=== PATIENT | male | born 1960 | race Caucasian/White ===

== ENCOUNTER 2016-08-07 13:16 | Day surgery (SDC) | payer OTHER ==
[2016-08-07] VITALS (13 sets, daily range): BP systolic 125–169; BP diastolic 66–105; PULSE 16–85; RESP 10–20; O2SAT 94–98
[~2016-08-07] VITALS: Ht 185.4 cm; Wt 115.0 kg
[2016-08-07] MEDS: Lactated Ringer's 1,000 ML IV SCH ×5 (05:00→20:51)
[~2016-08-07 13:16] MED LIST: Bacitracin 50,000 unit Inj IRRIGATION ONE; CHOL40003 PO; CITA20TA11 PO; CeFAZolin 2 Gm/50 mL D5W Premix IV ONE; DIAZ5TAB PO; DOCU240C41 PO; ESOM40CA41 PO; IBUP800T28 PO; MELO-259 PO; METO25TA99 PO; OXYC1TAB24 PO; POLY17PO6 PO; Thrombin Powder 5,000 Unit TOPICAL ONE
[2016-08-07] MEDS ORDERED: Ketamine 10 mg/mL 20 mL Inj ONE (13:17)
[2016-08-07] MEDS ORDERED: Glycopyrrolate 0.2 MG/ML 1mL Inj ONE (13:17)
[2016-08-07] MEDS ORDERED: Rocuronium 10 mg/mL 5 mL Inj ONE (13:17)
[2016-08-07] MEDS ORDERED: HYDROmorphone 2 mg/mL Inj ONE (13:17)
[2016-08-07] MEDS ORDERED: Propofol 10,000 mCg/mL 20 mL Inj ONE (13:17)
[2016-08-07] MEDS ORDERED: fentaNYL-PF 50 mCg/mL 2 mL Inj ONE ×3 (13:17→20:11)
[2016-08-07] MEDS ORDERED: Ondansetron 2 mg/mL 2 mL Inj ONE (13:17)
[2016-08-07] MEDS ORDERED: Dexamethasone 4 mg/mL Inj ONE (13:17)
[2016-08-07] MEDS ORDERED: Neostigmine 1 mg/mL 10 mL Inj ONE (13:17)
--- NOTE | 2016-08-07 15:57 | PCM.HPANE ---
Patient Data Date of Service: Aug 07, 2016 Surgeon Admitting Provider: Attending Provider:Rolan Alegria MD Primary Care Physician:Dawn Other Provider:Jany Perez Anesthesia Reason for Visit Cervical Radiculopathy Ht/WT & BMI Height (Feet): 6 Height (Inches): 1 Weight (Kilograms): 115.6 Body Mass Index 33.00 Allergies Coded Allergies: No Known Drug Allergies (Verified Allergy, Unknown, 11/19/13) Past Anesthesia History Anesthesia History: Denies:: Abnormal Airway, Anesthesia Reactions, Difficult Intubation, Fam Anesthesia Reaction, Fam Malignant Hypertherm, Malignant Hyperthermia Diabetes History Hx Diabetes?: No MRSA MRSA: No Medications Hypertension Medication: Yes Home Meds Incl Beta Maryjo: Yes Date Beta Maryjo Taken: Aug 07, 2016 Time Beta Maryjo Taken: 0900 Reported Medications Cholecalciferol (Vitamin D3) (Vitamin D3)4,000 Unit Capsule4,000 Unit PO DAILY 08/06/16 Diazepam (Valium)5 Mg Tablet5 Mg PO TID A 30 Days Ref 0 08/06/16 Docusate Calcium (Stool Softener)240 Mg Azwxhto186 Mg PO PRN For Constipation 08/06/16 oxyCODONE-Acetaminophen 5-325 mg 1 Each Tablet1-2 Tab PO q4-6h PRN For Pain Ref 0 08/06/16 Esomeprazole Magnesium (Nexium)40 Mg Capsule.dr40 Mg PO DAILY Ref 0 08/06/16 Polyethylene Glycol 3350 (Miralax)17 Gm Powd.pack17 Gm PO DAILY 08/06/16 Metoprolol Succinate ER 25 Mg Tab.er.24h25 Mg PO BID Ref 0 08/06/16 Ibuprofen 800 Mg Skyvll646 Mg PO TID PRN For Pain Ref 0 08/06/16 Citalopram 20 Mg Jwaduo64 Mg PO DAILY Ref 0 08/06/16 Meloxicam 7.5 Mg Tablet7.5 Mg PO BID 30 Days Ref 0 08/03/16 History HEENT History: Denies:: Abnormal Airway Difficult Intubation Hearing Problem Hx of Heart Problems?: Yes Cardiovascular History: Positive for:: Hypertension Denies:: AICD Pacemaker Hx of Respiratory Problem?: Yes Respiratory History: Positive for:: Use of C-PAP Machine Denies:: Asthma COPD Cough Emphysema Hemoptysis Oxygen Administration Pneumonia Pulmonary Embolism Tuberculosis Hx Neurologic Problems?: No Neurological History: Denies:: CVA Multiple Sclerosis Parkinson's Disease Seizures Hx of GI Problems?: No Gastrointestinal History: Denies:: Cirrhosis Gall Bladder Disease Gastrointestinal Bleeding Hx of Problems?: No Male Hx: Denies:: Prostate Problems Hx Musculoskeletal Problems?: Yes Musculoskeletal History: Positive for:: Back Injury (cervical radiculopathy current admission problem) Musculoskeletal Trauma Psycho Social History: Positive for:: Anxiety Hx Depression Hx Surgeries?: Yes (skin ca, tonsil) Hx Any Other Health Problems?: Yes Other History: Positive for:: Cancer (skin only) Hx Diabetes: No Hx Alcohol Use: Yes (BEER THREE A WEEK)Alcoholic Drinks Per Day: beer three time weekHx Substance Use: No Smoking Status: Former Smoker Stop/Bang Treated for Sleep Apnea?: Yes Do You Have a CPAP Machine?: Yes S-Snoring: Do You Snore Loudly: No T-Tired: feel tired, fatigued: No O-Obsered: Observed not breath: Yes P-Blood Pressure: treated: No B- Body Mass Index > 35 kg/m2: Yes A- Age over 50: No N- Neck Large Circumference: No G- Gender Male: No DAFNE Total Score: 2 DAFNE Risk Assessment: Low Risk, <3 Yes Risk Assessment Category Category 1A: Patient has history of documented sleep apnea, and HAS NOT received any narcotic, sedative or anesthesia administration during this stay. Category 1B: Patient has history of documented sleep apnea, and HAS received any narcotic , sedative or anesthesia administration during this stay Category 2: Patient has SUSPECTED Obstructive Sleep Apnea, and HAS received any narcotic , sedative or anesthesia administration during this stay. Category 3: Patient has SUSPECTED Obstructive Sleep Apnea and HAS NOT received narcotic, sedative or anesthesia administration during this stay. Category 4: Outpatient in Procedural Areas with known sleep apnea or who screen positive for High Risk via the STOP/BANG questionnaire. Exam Exam Vital Signs Vital Signs Date Time Temp Pulse Resp B/P Pulse Ox O2 Delivery O2 Flow Rate FiO2 08/07/16 13:58 16 16 137/88 97 Room Air General Appearance: Alert, Oriented X3, Cooperative, No Acute Distress HEENT/AIRWAY: MP 2 (Lower bridge, full aldridge), Neck Movement (Midline extention intact; sensitive to R Rotation without associated radiculopathy) Lungs: Clear to Auscultation, Normal Air Movement Heart: Exam Unremarkable, Regular Rate/Rhythm, No Murmurs/Rubs/Gallops Meds/Labs/Diagnostics Admission Meds Current Medications Lactated Ringer's (Lr) 1,000 ml @ 120 mls/hr Q8H20M IV Last administered on t 13:42; Start 08/07/16 at 05:00; Stop 08/07/16 at 13:19; Status DC Plan Impression Patient chart reviewed, patient interviewed and anesthestic plan with risks, benefits, and alternatives discussed, and informed consent obtained. NPO Status: 1100 CLEAR ASA Physical Status: ASA2 Mod Systemic Disease Anesthetic Plan: GA Bene/Risks/Altern/Consents: Yes HP Complete Prior to Induction: Yes Nate Connor DO Aug 07, 2016 15:57
[2016-08-07] MEDS ORDERED: Bacitracin 50,000 unit Inj ONE (17:34)
[2016-08-07] MEDS ORDERED: Thrombin Powder 5,000 Unit TOPICAL ONE ×2 (17:35→18:16)
[2016-08-07] MEDS ORDERED: Bupivacaine 0.5%/EPI 50 mL Inj INFILTRATE ONE (18:15)
[2016-08-07] MEDS ORDERED: Bacitracin 50,000 unit Inj IRRIGATION ONE (18:15)
--- NOTE | 2016-08-07 19:46 | PCM.HPSURG ---
Subjective Date of Service: Jul 26, 2016 Referring Provider: Admitting Physician: Primary Care Physician: Nopcp Attending Physician: Rolan Alegria MD Allergy Allergies: Coded Allergies: No Known Drug Allergies (Verified Allergy, Unknown, 11/19/13) Social History Hx Alcohol Use: Yes (BEER THREE A WEEK) Alcoholic Drinks Per Day: beer three time week Hx Substance Use: No PMH HEENT History HEENT History: Denies:: Abnormal Airway Difficult Intubation Hearing Problem Cardiovascular History History of Heart Problems?: Yes Cardiovascular History: Positive for:: Hypertension Denies:: AICD Pacemaker Respiratory History of Respiratory Problem: Yes Respiratory History: Positive for:: Use of C-PAP Machine Denies:: Asthma COPD Cough Emphysema Hemoptysis Oxygen Administration Pneumonia Pulmonary Embolism Tuberculosis Neurological History Hx Neurologic Problems?: No Neurological History: Denies:: CVA Multiple Sclerosis Parkinson's Disease Seizures Gastrointestinal History HX of GI Problems?: No Gastrointestinal History: Denies:: Cirrhosis Gall Bladder Disease Gastrointestinal Bleeding Genitourinary History Hx of Gu Problems?: No Female/Male History Reproductive History Male: Denies: Prostate Problems Musculoskeletal History Hx Musculoskeletal Problems?: Yes Musculoskeletal History: Positive for:: Back Injury (cervical radiculopathy current admission problem) Musculoskeletal Trauma Psycho Social History Psycho Social History: Positive for:: Anxiety Hx Depression Other History Hx Any Other Health Problems?: Yes Other History: Positive for:: Cancer (skin only) Diabetes: No Social History Hx Alcohol Use: Yes (BEER THREE A WEEK)Alcoholic Drinks Per Day: beer three time weekHx Substance Use: No Smoking Status: Former Smoker H&P Surgical Exam Exam Lungs: Clear to Auscultation, Normal Air Movement Heart: Exam Unremarkable, Regular Rate/Rhythm, No Murmurs/Rubs/Gallops Yasir Gil PA-C Aug 07, 2016 19:46
[2016-08-07] MEDS ORDERED: Benzocaine (Hurricaine) 20% Unit-Dose Spray MUC_MEMBRM PRN ×2 (19:50→20:05)
--- NOTE | 2016-08-07 19:50 | PCM.HPSURG ---
Subjective Date of Service: Jul 26, 2016 Referring Provider: Admitting Physician: Primary Care Physician: Nopcp Attending Physician: Rolan Alegria MD Chief Complaint Left arm pain History of Present Illness Brief H&P performed by Dr. Rolan Alegria M.D. on 07/26/2016 Visit 56-year-old male who presents for evaluation of left arm pain. The patient reports spontaneous onset of pain proximally 6 weeks ago. There is no inciting trauma. He complains of severe intractable pain in the left periscapular region with radiation to the left arm & hand. The arm & hand symptoms include tingling, paresthesias, buzzing, & numbness. He also some notes weakness in the left arm. He has been unable to sleep at night because of pain despite oral narcotics, NSAIDs, diazepam, gabapentin, & oral prednisone. He did report partial temporary improvement while he was on prednisone for 5 days, but as soon as the medication was finished the pain returned to being severe. 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 He denies right arm symptoms or any chronic neck complaints. He does have some moderate low back pain & restless leg syndrome. He denies gait changes or bowel or bladder changes. PHYSICAL EXAM General: This is a well-developed, well-nourished, male who is alert, cooperative, & appears to be in no acute distress with language and speech that is intact & fluent. There is no evidence of recent or remote memory impairment. HEENT: Head is normocephalic, atraumatic. Neck: Non-tender, decreased range of motion. Khloe's, Lhermittes & Distraction is positive, & No adenopathy. Lungs: Clear to auscultation bilaterally. Heart: Regular rate & rhythm. No audible murmur. Abdomen: Soft, & non-tender. Back: No gross scoliosis, & non-tender. Extremities: No peripheral edema. Radial, dorsalis pedis pulses 2+ bilaterally. Fabers is [NEGATIVE] for hip pathology. Straight leg raise is [NEGATIVE]. Tinel 's & Phalen's are [NEGATIVE] with no tenderness over cubital tunnel. Neurologic: Alert and oriented x 3. Language and speech are intact & fluent. No evidence of recent or remote memory impairment. Fund of knowledge is appropriate for age and level of education. Mood is euthymic. Cranial nerves: Pupils are equal and reactive to light and accommodation. Extra- ocular movements are intact. Visual girffin are intact with direct confrontation bilaterally. Sensation is intact on the face bilaterally. No facial asymmetry. Hearing appear to be intact bilaterally. Palate rises symmetrically. Shoulder shrug is symmetrical. Tongue is midline. Motor strength: [5/5] bilateral deltoid, biceps, triceps, wrist extension, handgrip; hip flexion, knee extension, foot dorsiflexion, plantar flexion, & extensor hallucis longus. Except left triceps strength is 4/5 Deep Tendon Reflexes: [2+] biceps, [2+] brachioradialis, [2+] triceps, [3+] knee jerks, [2+] ankle jerks. Toes are down-going to plantar stimulation. Castaneda's sign is [NEGATIVE]. Muscle Bulk and Tone: Intact in the upper & lower extremities. Sensation: Diminished pinprick and light touch in the left thumb, index, & middle finger following the C6 nerve root distribution. Coordination: Intact ejbkqb-kg-bcch & hgbj-gn-gkmw, rapid alternating movements in the upper & lower extremities. Gait: Intact, tandem gait can be performed. Romberg is negative. DIAGNOSTIC STUDIES: MRI scan of the cervical spine shows large left paracentral disc herniation at C6-7 causing severe compression of the left C7 nerve root & compression of the left side of the spinal cord. There is moderate broad-based disc osteophyte at C5-6 causing spinal canal stenosis but no significant nerve root or spinal cord compression. CLINICAL IMPRESSION: Severe left upper extremity pain, weakness, & numbness. Imaging findings also shows spinal cord compression in addition to severe nerve root compression due to C6-7 herniated disc. RECOMMENDATIONS: The patient is a appropriate candidate for surgical treatment. He has already tried oral steroids, which provided only short-term partial relief. Physical therapy is not effective when there is spinal cord compression & severe radiculopathy. I recommend C6-7 anterior cervical discectomy & disc arthroplasty. I reviewed the procedure and films with the patient & his . We went over the risks and benefits. Risks including but not limited to residual symptoms despite a technically successful operation, failure of device requiring revision or fusion surgery, hoarseness, dysphagia, bleeding, infection, very rare nerve or spinal cord injury, & medical complications. He understands he would like to proceed. Surgery will be scheduled for the next available date. The above H&P was performed by Dr. Rolan Alegria M.D. on 07/26/2016 and dictated into [facility] EMR on 08/07/2016 by Yasir Gil PA-C Allergy Allergies: Coded Allergies: No Known Drug Allergies (Verified Allergy, Unknown, 11/19/13) Social History Hx Alcohol Use: Yes (BEER THREE A WEEK) Alcoholic Drinks Per Day: beer three time week Hx Substance Use: No PMH HEENT History HEENT History: Denies:: Abnormal Airway Difficult Intubation Hearing Problem Cardiovascular History History of Heart Problems?: Yes Cardiovascular History: Positive for:: Hypertension Denies:: AICD Pacemaker Respiratory History of Respiratory Problem: Yes Respiratory History: Positive for:: Use of C-PAP Machine Denies:: Asthma COPD Cough Emphysema Hemoptysis Oxygen Administration Pneumonia Pulmonary Embolism Tuberculosis Neurological History Hx Neurologic Problems?: No Neurological History: Denies:: CVA Multiple Sclerosis Parkinson's Disease Seizures Gastrointestinal History HX of GI Problems?: No Gastrointestinal History: Denies:: Cirrhosis Gall Bladder Disease Gastrointestinal Bleeding Genitourinary History Hx of Gu Problems?: No Female/Male History Reproductive History Male: Denies: Prostate Problems Musculoskeletal History Hx Musculoskeletal Problems?: Yes Musculoskeletal History: Positive for:: Back Injury (cervical radiculopathy current admission problem) Musculoskeletal Trauma Psycho Social History Psycho Social History: Positive for:: Anxiety Hx Depression Other History Hx Any Other Health Problems?: Yes Other History: Positive for:: Cancer (skin only) Diabetes: No Social History Hx Alcohol Use: Yes (BEER THREE A WEEK)Alcoholic Drinks Per Day: beer three time weekHx Substance Use: No Smoking Status: Former Smoker H&P Surgical Exam Exam Lungs: Clear to Auscultation, Normal Air Movement Heart: Exam Unremarkable, Regular Rate/Rhythm, No Murmurs/Rubs/Gallops Yasir Gil PA-C Aug 07, 2016 19:50
[2016-08-07] MEDS ORDERED: Polyethylene Glycol (PEG) 17 Gm Powder PO PRN (19:55)
[2016-08-07] MEDS ORDERED: Ondansetron 2 mg/mL 2 mL Inj IVPUSH PRN ×2 (19:55→20:10)
[2016-08-07] MEDS ORDERED: Senna-Docusate 8.6-50 mg Tablet PO PRN (19:55)
[2016-08-07] MEDS ORDERED: Sodium Biphos-Phos 133 mL Enema RECTAL PRN (19:55)
[2016-08-07] MEDS ORDERED: Benzocaine-Menthol Lozenge 2/Pkg PO PRN (19:55)
[2016-08-07] MEDS ORDERED: Magnesium Hydroxide 10 mL Oral Concentration PO PRN (19:55)
[2016-08-07] MEDS ORDERED: HYDROmorphone 1 mg/mL Inj IVPUSH PRN (19:55)
--- NOTE | 2016-08-07 20:01 | PCM.ANEP1 ---
Post Anesthesia Phase 1 PACU Phase 1 Assessment Date of Service: Jul 26, 2016 Vital Signs Vital Signs Date Time Temp Pulse Resp B/P Pulse Ox O2 Delivery O2 Flow Rate FiO2 08/07/16 19:55 75 12 144/89 98 Simple Mask 8 08/07/16 19:46 77 15 157/78 98 Simple Mask 8 08/07/16 19:43 80 14 156/74 98 Simple Mask 8 08/07/16 19:33 37.0 82 12 169/105 98 Simple Mask 8 08/07/16 13:58 16 16 137/88 97 Room Air Anesthetic Administered: GA Level of Alertness: Sleepy, easy to arouse RASHID's with Equal Strength: Yes Pain: No Nausea or Vomiting: No Oxygen Delivery: Simple Mask (6L simple mask) Lungs: Clear to Auscultation, Normal Air Movement Nate Connor DO Aug 07, 2016 20:01
[2016-08-07] MEDS ORDERED: Labetalol 5 mg/mL 4 mL Inj IV PRN (20:10)
[2016-08-07] MEDS ORDERED: Phenylephrine 10,000 mCg/mL Inj IVPUSH PRN (20:10)
[2016-08-07] MEDS ORDERED: Atropine 0.4 mg/mL Inj IVPUSH PRN (20:10)
[2016-08-07] MEDS ORDERED: Lactated Ringer's 1,000 ML IV SCH (20:10)
[2016-08-07] MEDS ORDERED: Lactated Ringer's 500 ML IV PRN (20:10)
[2016-08-07] MEDS ORDERED: Dexamethasone 4 mg/mL Inj IVPUSH PRN (20:10)
[2016-08-07] MEDS ORDERED: EPHEDrine Sulfate 50 mg/mL Inj IVPUSH PRN (20:10)
--- NOTE | 2016-08-07 20:21 | PCM.ANEP2 ---
Post Anesthesia Evaluation ASA/CMS Post Anesthesia Date of Service: Aug 07, 2016 VS in Patient's Normal Range?: Yes Resp Stable; Airway Patent?: Yes CV Function & Hydration Stable: Yes Mental Status Recovered?: Yes Pain control Satisfactory?: Yes N/V Control Satisfactory?: Yes Additional Comments Sensorimotor baseline. Nate Connor DO Aug 07, 2016 20:21
[2016-08-07] MEDS: fentaNYL-PF 50 mCg/mL 2 mL Inj IVPUSH PRN ×2 (20:25→20:33)
[2016-08-07] MEDS: HYDROmorphone 1 mg/mL Inj IVPUSH PRN ×2 (20:25→20:33)
--- NOTE | 2016-08-07 20:49 | OP ---
[address] [address] OPERATIVE REPORT PATIENT: KING AMEZCUA : 1960 MR#: [id number] ADMIT: 08/07/2016 JOB ID: [id number] DATE OF SURGERY: 08/07/2016 SURGEON: Rolan Alegria MD PREOPERATIVE DIAGNOSIS(ES): Herniated disk, C6-7, with left C7 radiculopathy. POSTOPERATIVE DIAGNOSIS(ES): Herniated disk, C6-7, with left C7 radiculopathy. PROCEDURE: C6-7 anterior cervical diskectomy and disk arthroplasty with LDR Mobi-C artificial disk. REDUCER: KELSI Light. Sales Planner provided irrigation and retraction and was medically necessary for the procedure. OPERATIVE PROCEDURE: The patient was brought to the operating room. General anesthesia with oral intubation was administered. Patient was positioned supine with the neck roll, shoulders taped down and the anterior neck was prepped and draped in a sterile fashion. Time-out was performed. All extremities padded. IV Ancef was given. Compression boots were applied to the legs and active warming was in place. The skin was injected with Marcaine-containing epinephrine. A horizontal incision was made from the midline towards the right side of the neck 4 cm in length, 2 cm above the clavicle. Platysma muscles dissected free from the overlying tissue. The platysma was incised horizontally. A large vein in the midline was partially transected and was controlled with hemostats and then tied off with 3-0 Vicryl suture. A plane was developed between the sternocleidomastoid laterally and the strap muscles medially until the anterior aspect of the cervical spine was encountered. Long coli muscles were dissected from the spine at C6-C7 and a deep self-retaining retractor was placed. Imaging was taken to confirm the level of the procedure and perfect AP and lateral positioning of the patient. The disk was incised with a scalpel. Distracting pins were placed in the C6 and C7 vertebral bodies. The disk space was distracted open. A diskectomy was carried out with curettes and pituitary rongeurs. Posterior osteophytes were removed to enlarge the access to the epidural space. The posterior longitudinal ligament was resected. Multiple large fragments of herniated disk were encountered against the thecal sac and in the left C7 nerve root foramen. These were extracted with micro nerve hook and micropituitary forceps. When no additional fragments remained, the thecal sac and exiting C7 nerve roots were fully visualized. The endplates were scraped clean with a curette. The space was measured with sizers and the Mobi-C device was selected. A 17 mm wide, 60 mm depth, 6 mm height arthroplasty device was utilized and was tapped into position using the tugboat mate and with lateral fluoroscopic guidance it was put into the appropriate position. The tugboat mate was removed. The compression pins were compressed, and then distracting pins were removed and the holes filled with bone wax. Wound was irrigated and closed with 3-0 Vicryl in platysma, 3-0 Vicryl deep dermis and 4-0 Vicryl subcuticular in the skin. Steri-Strips and sterile dressing were applied. Patient was turned supine, extubated, and brought to Recovery in stable condition. There were no intraoperative complications. Estimated blood loss was 30 cc.
[2016-08-07] MEDS: hydrOXYzine Pamoate 25 mg Capsule PO PRN (21:27)
[2016-08-07] MEDS: Senna-Docusate 8.6-50 mg Tablet PO SCH (21:51)
[2016-08-07] MEDS: MeTOProlol XL 25 mg ER24 Tablet PO SCH (21:51)
[2016-08-07] MEDS ORDERED: 0.9% Sodium Chloride 250 ML ONE (23:30)
[2016-08-07] MEDS: Acetaminophen IV 1,000 MG in IV Premix 1 EACH IV SCH (23:34)
[2016-08-08 00:05] VITALS: BP 128/78; PULSE 71; RESP 20; O2SAT 94
[2016-08-08 02:11] VITALS: BP 128/79; PULSE 78; RESP 20; O2SAT 97
[2016-08-08] MEDS: CeFAZolin Inj 2 GM in Dextrose 5%-Pha MIX 50 ML IV SCH ×2 (02:15→10:49)
[2016-08-08] MEDS: Lactated Ringer's 1,000 ML IV SCH (03:51)
[2016-08-08] MEDS: Acetaminophen IV 1,000 MG in IV Premix 1 EACH IV SCH ×2 (04:04→10:00)
[2016-08-08 05:47] VITALS: BP 131/76; PULSE 63; RESP 20; O2SAT 96
[2016-08-08] MEDS: hydrOXYzine Pamoate 25 mg Capsule PO PRN (06:15)
[2016-08-08] MEDS ORDERED: Pantoprazole 40 mg ER24 Tablet PO SCH (06:30)
[2016-08-08] MEDS: Polyethylene Glycol (PEG) 17 Gm Powder PO SCH ×2 (08:30→09:18)
[2016-08-08] MEDS: Senna-Docusate 8.6-50 mg Tablet PO SCH ×2 (08:30→09:19)
[2016-08-08] MEDS: MeTOProlol XL 25 mg ER24 Tablet PO SCH (09:19)
--- NOTE | 2016-08-08 10:12 | PCM.DISURG ---
Surgical Discharge Instruction Date of Service Aug 08, 2016 Dates of Hospitalization Date of Hospital Admission Outpatient with bed status 08/07/2016 Providers Admitting Physician: Primary Care Physician: Nopcp Attending Physician: Rolan Alegria MD Discharge Diagnosis Discharge Diagnosis Status post C6-7 discectomy & disc arthroplasty Post Operative diagnosis Status post C6-7 discectomy & disc arthroplasty Additional Instructions Discharge Instructions Total Disc Arthroplasty What is my recovery like? The hospital stay is usually outpatient surgery, going home the same day. After the surgery, you might have a sore throat. This is very common due to the retraction (moving) of the esophagus and trachea. The sore throat usually resolves in 1-2 weeks. Drinking lots of fluids will help improve the symptoms. A cervical collar is not necessary. On your postoperative follow-up appointments , your Doctor will perform X-rays to see how well everything is healing. What are my restrictions? You should not lift anything heavier than five pounds. Avoid excessive movements of your neck for at least 2 weeks then began slow range of motion as tolerated. Can I Shower? You may shower when you go home. You must remove the outside dressing on the 7th day after surgery, or change dressing as needed if soiled or saturated ( replacing new sterile gauze & water proof dressing) otherwise leave alone. The small pieces of tape (steri-strips) directly on top of the incision may get wet. The steri-strips will fall off on their own. Can I drive? No, you should not drive until specifically given permission from your Doctor in a follow up appointment. Most Patient's can drive in 2-3 weeks if they are not taking narcotic pain medications or muscle relaxers. You may ride in a car, but should avoid trips longer than two hours in duration. When can I return work / sports? Your Doctor will discuss your return to work with you on your first postoperative follow-up appointment. Most patients may return to work within 2 weeks for sedentary jobs. More physically demanding jobs may require 3-6 months of healing before such work can be considered. When should I call the doctor? You should call your Doctor or go to the Emergency Department if you develop chest pain, shortness of breath, a temperature greater than 101.5 F, severe uncontrolled pain or weakness, loss of bowel or bladder function, choking, swelling, lots or drainage, pus discharge or constipation. Dr. Rolan Alegria M.D. is specifically recommending that you take ibuprofen 6 -800mg(4x200 mg tablets) by mouth with food and water if tolerated every 8 hours after surgery. Instructions Regarding Comfort & Pain Medication Use: During the recovery period , even with the use of pain medication, you may experience pain at the site of surgery. You may also have the same type of pain you had before surgery. Please use your pain scale as a guide for taking your pain medication. When your pain is greater than 4 out of 10, or when your pain reaches your personal tolerable level of pain, take your pain medication as prescribed. Use your pain medication on an 'as needed' basis. This means if your pain level is within your tolerable level of pain you DO NOT need to take the medication. As you get better, you will notice you can increase the time interval between doses and decrease the number of tablets you are taking, gradually taking less and less pain medication. Taking pain medication when it is not necessary (for example when your pain is tolerable or acceptable) can result in dangerous side effects and over- sedation. Signs and symptoms of over-sedation include: drowsiness, excessive sleeping, slow or difficult breathing, slurred speech, impaired thinking, confusion, impaired motor coordination. If you have any of these symptoms stop taking the medication and immediately contact your doctor. IF SYMPTOMS ARE LIFE THREATENING CALL 911. To decrease pain and swelling, frequently apply an ice pack for 20 min intervals with at least one hour off. When to take Acetaminophen for pain? If you don't have liver problems, allergies and/or Tylenol is not in your current pain medication. Take Extra Strength Tylenol 500mg 2 tabs by mouth every 6 hours as needed for pain. DO NOT EXCEED 8 TABS PER DAY. Additional Instructions Use your CPAP as instructed and all times when indicated. Follow Up Plan Follow Up Plan Follow-up with physician diagnostic assistant and outpatient neurosurgical clinic in 1 week for wound check. Follow-up Provider (F9): Yasir Gil PA-C Additional Information Attending Statement All documentation reviewed & orders authorized by Prisca Tinoco Scott PA-C Aug 08, 2016 10:12
--- NOTE | 2016-08-08 10:18 | PCM.DC.SUR ---
Discharge Summary Date of Service: Aug 08, 2016 Date of Hospital Admission: 08/07/2016 outpatient with a bed status Date of Operation(s): 08/07/2016 Date of Discharge: 08/08/2016 Diagnosis at Time of Discharge Status post C6-7 discectomy & disc arthroplasty Problems: Operation C6-7 discectomy & disc arthroplasty Brief History and Physical: Brief H&P performed by Dr. Rolan Alegria M.D. on 07/26/2016 Visit 56-year-old male who presents for evaluation of left arm pain. The patient reports spontaneous onset of pain proximally 6 weeks ago. There is no inciting trauma. He complains of severe intractable pain in the left periscapular region with radiation to the left arm & hand. The arm & hand symptoms include tingling, paresthesias, buzzing, & numbness. He also some notes weakness in the left arm. He has been unable to sleep at night because of pain despite oral narcotics, NSAIDs, diazepam, gabapentin, & oral prednisone. He did report partial temporary improvement while he was on prednisone for 5 days, but as soon as the medication was finished the pain returned to being severe. He also tried family day carer without improvement. He denies right arm symptoms or any chronic neck complaints. He does have some moderate low back pain & restless leg syndrome. He denies gait changes or bowel or bladder changes. PHYSICAL EXAM General: This is a well-developed, well-nourished, male who is alert, cooperative, & appears to be in no acute distress with language and speech that is intact & fluent. There is no evidence of recent or remote memory impairment. HEENT: Head is normocephalic, atraumatic. Neck: Non-tender, decreased range of motion. Khloe's, Lhermittes & Distraction is positive, & No adenopathy. Lungs: Clear to auscultation bilaterally. Heart: Regular rate & rhythm. No audible murmur. Abdomen: Soft, & non-tender. Back: No gross scoliosis, & non-tender. Extremities: No peripheral edema. Radial, dorsalis pedis pulses 2+ bilaterally. Fabers is [NEGATIVE] for hip pathology. Straight leg raise is [NEGATIVE]. Tinel 's & Phalen's are [NEGATIVE] with no tenderness over cubital tunnel. Neurologic: Alert and oriented x 3. Language and speech are intact & fluent. No evidence of recent or remote memory impairment. Fund of knowledge is appropriate for age and level of education. Mood is euthymic. Cranial nerves: Pupils are equal and reactive to light and accommodation. Extra- ocular movements are intact. Visual griffin are intact with direct confrontation bilaterally. Sensation is intact on the face bilaterally. No facial asymmetry. Hearing appear to be intact bilaterally. Palate rises symmetrically. Shoulder shrug is symmetrical. Tongue is midline. Motor strength: [5/5] bilateral deltoid, biceps, triceps, wrist extension, handgrip; hip flexion, knee extension, foot dorsiflexion, plantar flexion, & extensor hallucis longus. Except left triceps strength is 4/5 Deep Tendon Reflexes: [2+] biceps, [2+] brachioradialis, [2+] triceps, [3+] knee jerks, [2+] ankle jerks. Toes are down-going to plantar stimulation. Castaneda's sign is [NEGATIVE]. Muscle Bulk and Tone: Intact in the upper & lower extremities. Sensation: Diminished pinprick and light touch in the left thumb, index, & middle finger following the C6 nerve root distribution. Coordination: Intact [id number] & [id number], rapid alternating movements in the upper & lower extremities. Gait: Intact, tandem gait can be performed. Romberg is negative. DIAGNOSTIC STUDIES: MRI scan of the cervical spine shows large left paracentral disc herniation at C6-7 causing severe compression of the left C7 nerve root & compression of the left side of the spinal cord. There is moderate broad-based disc osteophyte at C5-6 causing spinal canal stenosis but no significant nerve root or spinal cord compression. CLINICAL IMPRESSION: Severe left upper extremity pain, weakness, & numbness. Imaging findings also shows spinal cord compression in addition to severe nerve root compression due to C6-7 herniated disc. RECOMMENDATIONS: The patient is a appropriate candidate for surgical treatment. He has already tried oral steroids, which provided only short-term partial relief. Physical therapy is not effective when there is spinal cord compression & severe radiculopathy. I recommend C6-7 anterior cervical discectomy & disc arthroplasty. I reviewed the procedure and films with the patient & his . We went over the risks and benefits. Risks including but not limited to residual symptoms despite a technically successful operation, failure of device requiring revision or fusion surgery, hoarseness, dysphagia, bleeding, infection, very rare nerve or spinal cord injury, & medical complications. He understands he would like to proceed. Surgery will be scheduled for the next available date. The above H&P was performed by Dr. Rolan Alegria M.D. on 07/26/2016 and dictated into [facility] on 08/07/2016 by Yasir Gil PA-C Hospital Course: Hospital Course: The patient was admitted through same day surgery and subsequently underwent a C6-7 discectomy & disc arthroplasty. The patient tolerated the procedure well. The patient was then was transferred to PACU and then to the O[facility] floor. The patient was admitted for postoperative pain control, PT/OT, supervised for DAFNE co-morbidities with Respiratory therapy, nurse monitoring, continuous pulse oximetry, and discharge planning. The Patient's overnight course was within normal limits. Currently the patient has complaints of mild-moderate surgical site, posterior referred by fascial inflammatory pain/spasm medically controlled the current postoperative analgesics & muscle relaxant. There is significant improvement of the patient' s residual cervical radiculopathy symptoms. The patient denies headache, severe sore throat or dysphagia, chest pain, shortness of breath, abdominal pain, nausea, vomiting, constipation, diarrhea, or any new onset &/or location of pain, weakness or paresthesias aside from the surgical site. PHYSICAL EXAM This is a well developed, well nourished, male who is alert, cooperative, and appears to be in no acute distress with a pleasant affect & euthymic mood. Exam of the head is normocephalic. PERRL, EOMI, without facial droop, hearing grossly intact, nostrils patent, oral cavity and pharynx normal. Voice is within normal limits Exam or the heart reveals regular rate and rhythm without audible murmurs The lungs are clear to auscultation bilaterally. The abdomen is non- tender and non-distended. Exam of the anterior surgical wound reveals that it is clean, dry, and intact; without signs of infection, inflammation, and/or hematoma. Gross exam of the extremities reveals strength & sensation are grossly intact within the patient's normal baseline limits except improve diminished strength & sensation in the left upper extremity. The patient was eventually able to get out of bed and ambulate within acceptable limits. Therapy services made recommendations for disposition. Flatus was appreciated and the patient was able to void without significant difficulty. The pain was gradually under control. The patient was afebrile on discharge. The patient's incision(s) was clean, dry and intact. The dressing was changed to the Surgeon's specifications only when necessary for sober saturated dressing. The patient progressed well with rehabilitation and was subsequently discharged to home in stable condition. The patient verbally affirmed understanding when given clear instruction regarding the postoperative care and follow-up including but not limited to seeking immediate medical attention for chest pain, shortness of breath, oversedation, a temperature greater than 101.5 F, severe uncontrolled pain or weakness, loss of bowel or bladder function, choking, lots or drainage, pus discharge or constipation. All questions were answered. Disposition: Home in stable condition. Follow-up Plan: Follow-up with physician podiatrist assistant and outpatient neurosurgical clinic in 1 week for wound check. Cholecalciferol (Vitamin D3) (Vitamin D3) 4,000 Unit Capsule 4,000 UNIT PO DAILY (Reported) Citalopram (Citalopram) 20 Mg Tablet 20 MG PO DAILY (Reported) Diazepam (Valium) 5 Mg Tablet 5 MG PO TID (Reported) Docusate Calcium (Stool Softener) 240 Mg Capsule 240 MG PO PRN For Constipation (Reported) Esomeprazole Magnesium (Nexium) 40 Mg Capsule.dr 40 MG PO DAILY (Reported) Ibuprofen (Ibuprofen) 800 Mg Tablet 800 MG PO TID PRN PRN For Pain (Reported) Metoprolol Succinate ER (Metoprolol Succinate ER) 25 Mg Tab.er.24h 25 MG PO BID (Reported) Polyethylene Glycol 3350 (Miralax) 17 Gm Powd.pack 17 GM PO DAILY (Reported) oxyCODONE-Acetaminophen 5-325 mg (oxyCODONE-Acetaminophen 5-325 mg) 1 Each Tablet 1-2 TAB PO q4-6h PRN PRN For Pain (Reported) Discharge Medications: Prescribed preoperatively. Attending Statement: Documentation reviewed & orders authorized by Dr. Rolan Alegria M.D. Yasir Gil PA-C Aug 08, 2016 10:18
== END 2016-08-08 11:35 | disposition home or self-care (01) ==
LOC: SAS 13:16 → OSC 21:01 → SAS 08-08 11:35
PROVIDERS: ATTEND Neurological Surgery
DX: M50.123 Cervical disc disorder at C6-C7 level with radiculopathy (principal); I10 Essential (primary) hypertension; K21.9 Gastro-esophageal reflux disease without esophagitis; M19.90 Unspecified osteoarthritis, unspecified site; F41.9 Anxiety disorder, unspecified; G47.33 Obstructive sleep apnea (adult) (pediatric); F32.9 Major depressive disorder, single episode, unspecified; Z85.828 Personal history of other malignant neoplasm of skin; Z87.891 Personal history of nicotine dependence
CPT/HCPCS: 22856; 76001; 94640; 96374; 96376; 97161; 97165; C1889; J0131; J0690; J1100; J1170; J2250; J2405; J2710; J3010; J7120; Q0177